=== PATIENT | female | born 1960 | race African-American/Black ===

== ENCOUNTER 2018-07-30 18:03 | Emergency (ER) | payer OTHER ==
[~2018-07-30] VITALS: Ht 167.6 cm; Wt 75.0 kg
[2018-07-30] MEDS ORDERED: HYDR12.529 PO (18:08)
[2018-07-30] MEDS ORDERED: MAGNESIUM/ALUMINUM HYDROXIDE/SIMETHICONE 30ML UDC PO ONE (20:30)
[2018-07-30] MEDS ORDERED: VISCOUS LIDOCAINE 2% 15 ML UDC PO ONE (20:30)
[2018-07-30] MEDS ORDERED: ASPIRIN 81MG TABLET PO ONE (20:30)
[2018-07-30 20:55] LABS: BASOPHILS % 0.5 % (0.0-2.0); EOSINOPHILS % 0.7 % (0.0-5.0); HEMATOCRIT. 37.4 % (36.0-48.0); HEMOGLOBIN. 12.8 g/dL (12.0-16.0); LYMPHOCYTES % 15.8 % (20.0-50.0); MEAN CORPUSCULAR HEMOGLOBIN 27.1 pg (28.0-32.0); MEAN CORPUSCULAR VOLUME 79.4 fL (81.0-99.0); MEAN PLATELET VOLUME 7.7 fl (7.4-10.4); MONOCYTES % 5.8 % (2.0-8.0); NEUTROPHILS % 77.2 % (40.0-76.0); PLATELET 267 x1000/uL (130-400); RED BLOOD CELL COUNT 4.71 mill/uL (4.2-5.4); RED CELL DISTRIBUTION WIDTH 14.3 % (11.6-14.6)
[2018-07-30 21:02] LABS: CHLORIDE 104 mEq/L (98-107)
[2018-07-30 22:22] VITALS: BP 141/56
[2018-07-30] MEDS ORDERED: FAMOTIDINE 20MG TABLET PO ONE (22:30)
== END 2018-07-30 22:40 | disposition home or self-care (01) ==
LOC: ER 18:03
DX: K21.9 Gastro-esophageal reflux disease without esophagitis (principal); R07.89 Other chest pain; R06.00 Dyspnea, unspecified; E78.00 Pure hypercholesterolemia, unspecified; I10 Essential (primary) hypertension; Z79.899 Other long term (current) drug therapy
CPT/HCPCS: 36415; 71045; 80053; 83880; 84484; 85025; 93005; 99284; Z7610